=== PATIENT | male | born 1975 | race Caucasian/White ===

== ENCOUNTER 2016-07-27 12:14 | Emergency (ER) | payer SELFPAY ==
--- NOTE | 2016-07-29 15:59 | NUR ---
Pt triggered as a high ED user. Attempted to contact pt. No answer, voice mail message left.
--- NOTE | 2016-07-29 16:02 | ER ---
ADMIT: 07/27/2016 RM/LOC: ER [facility] MR#: [id number] [address] VAZQUEZ CEBALLOS [address] [facility] [place] [address] Emergency Room Report SEX: M AGE: 41 : 1975 DATE: 07/27/2016 TIME12: 1214 hours. Please refer to my T-sheet for complete H and P. HISTORY OF PRESENT ILLNESS: Briefly, the patient is a 41-year-old, who comes in with a tooth pain. It has been going on for quite some time. It has been worse in the last 2 to 3 days. PHYSICAL EXAMINATION: VITAL SIGNS: Vital signs are stable. HEENT: He has a fractured left posterior lower molar. No evidence of abscess. EMERGENCY DEPARTMENT COURSE: I gave him 2 [place] 5 p.o., Amoxil 500 p.o., and Zofran 4 ODT. He is ready for discharge. ASSESSMENT: 1. Toothache. 2. Nicotine abuse. PLAN: Stop smoking. Follow up with a dentist as soon as possible. I wrote him a script for Phenergan, [place] 5, I gave him 15 Amoxil 500 t.i.d. for 7 days. Aime Davalos MD/ bakari JOB #: [id number] CC: Aime Davalos MD, Attending Physician John Sanchez MD, Family Physician . [facility]
== END 2016-07-27 12:58 | disposition home or self-care (01) ==
LOC: ER 12:14
DX: S02.5XXA Fracture of tooth (traumatic), initial encounter for closed fracture (principal); F17.210 Nicotine dependence, cigarettes, uncomplicated; Z79.899 Other long term (current) drug therapy; X58.XXXA Exposure to other specified factors, initial encounter

== ENCOUNTER 2016-09-25 12:54 | Emergency (ER) | payer SELFPAY ==
--- NOTE | 2016-09-26 09:21 | ER ---
ADMIT: 09/25/2016 RM/LOC: ER [facility] MR#: [id number] [address] VAZQUEZ CEBALLOS [facility] [place] [address] Emergency Room Report SEX: M AGE: 41 : 1975 DATE: 09/25/2016 TIME: 1254 hours. Please refer to my T-sheet for complete H and P. HISTORY OF PRESENT ILLNESS: Briefly, the patient is a 41-year-old, who comes in with toothache. It has been there for months and it got better. He is back again saying it is bothering him. He does have an appointment with a dentist coming up, but not until couple of weeks from now. PHYSICAL EXAMINATION: VITAL SIGNS: Stable. HEENT: His right lower posterior molar fracture and caries. There is no abscess. NECK: Soft, supple. No meningismus. EMERGENCY DEPARTMENT COURSE: He is ready for discharge. ASSESSMENT: Acute dentalgia/dental caries. PLAN: Saltwater gargle. Stop smoking. Return if worse. Follow up with dentist. Amoxil 500 t.i.d. for 10 days. [place] 5, gave him 12. Aime Davalos MD/ bakari JOB #: [id number] CC: Aime Davalos MD, Attending Physician Mo Gaston MD, Family Physician
== END 2016-09-25 13:56 | disposition home or self-care (01) ==
LOC: ER 12:54
DX: K02.9 Dental caries, unspecified (principal); F17.210 Nicotine dependence, cigarettes, uncomplicated

== ENCOUNTER 2016-10-05 13:28 | Emergency (ER) | payer SELFPAY ==
--- NOTE | 2016-10-22 15:00 | ER ---
ADMIT: 10/05/2016 RM/LOC: ER [facility] MR#: [id number] [address] CEBALLOSVAZQUEZ [address] [place] [address] Emergency Room Report SEX: M AGE: 41 : 1975 DATE: 10/05/2016 CHIEF COMPLAINT: Insect bites. HISTORY OF PRESENT ILLNESS: This is a pleasant, 41-year-old white male who presents with a day's duration of an itchy, burning, generalized skin rash. The patient states he first noticed some bites on his right flexural elbow area. Secondarily generalized about his entire body. Denies any known precipitating factors. No new medications or food. I did not find any bug and bedbug. at home states his is unaffected. No recent outdoor exposures, is concerned that he may have chickenpox. They did not have it as a child per his report. Denies any recent illness, fever, shortness of breath, cough, does have some abdominal pain. No swollen glands. No known medical allergies. COURSE IN THE EMERGENCY ROOM: The patient was seen and examined. PHYSICAL EXAMINATION: VITAL SIGNS: He is afebrile and nontoxic. SKIN: Warm and dry. He does have a generalized skin rash. Asymmetric macular, urticarial, erythematous rash. No warmth, tenderness, or vesicular lesions. HEENT: No conjunctival injections. Pharynx is nonerythematous. NECK: Soft and supple. LUNGS: No respiratory distress. HEART: Regular. IMPRESSION: Idiopathic urticaria. DISPOSITION: The patient was given a script for prednisone 20 mg p.o. b.i.d. for 5 days. Work note to return tomorrow. Regular activity. Continue home medications. Return with worsening signs or symptoms. Benadryl over-the- counter as needed for itching. Cool compress to affected areas as needed. Follow up with Dr. Suresh as needed. Questions sought and answered to the best of ability and to the patient's satisfaction. Discharged in stable condition. TRIPP Quijano / Bill Clark MD / bakari JOB #: [id number] CC: Bill Clark MD, Attending Physician Teodoro Suresh MD, Family Physician
== END 2016-10-05 15:32 | disposition home or self-care (01) ==
LOC: ER 13:28
DX: L50.1 Idiopathic urticaria (principal); F32.9 Major depressive disorder, single episode, unspecified; F41.9 Anxiety disorder, unspecified; J44.9 Chronic obstructive pulmonary disease, unspecified; F17.210 Nicotine dependence, cigarettes, uncomplicated; Z79.899 Other long term (current) drug therapy; W57.XXXA Bitten or stung by nonvenomous insect and other nonvenomous arthropods, initial encounter; Y92.009 Unspecified place in unspecified non-institutional (private) residence as the place of occurrence of the external cause